=== PATIENT | female | born 1950 | race American Indian/Alaskan Native ===

== ENCOUNTER 2018-05-01 07:36 | Day surgery (SDC) | payer MEDICARE, OTHER ==
[2018-04-28 15:47] VITALS: BMI 29.0
--- NOTE | 2018-05-01 09:54 | CP.SDSHP ---
Same Day Surgery H & P - History Proposed Procedure: Colonoscopy Pre-Op Diagnosis: Personal history of rectal cancer - Previous Medical/Surgical History Pulmonary: Asthma Previous Surgical History: APR - Allergies Allergies: Allergies No Known Allergies Allergy (Verified 04/28/18 15:49) - Current Medications Current Medications: See reconciliation sheet - Physical Exam General Appearance: WD WN female in NAD Vital Signs: Vital Signs 05/01/18 08:32 Temperature 968 F H Pulse Rate 65 Respiratory 20 Rate Blood Pressure 138/74 O2 Sat by Pulse 96 Oximetry Mental Status: Alert & Oriented x3 Neuro: WNL Heart: WNL Lungs: WNL GI: WNL - {Optional Preform as Required} Abdomen: Other Other Pertinent Findings: LLQ colostomy - Impression Impression: Personal history of rectal cancer Pt. Evaluated Today:Candidate for Anesthesia & Procedure: Yes - Date & Time Date: 05/01/18 Time: 09:54 Short Stay Discharge - Short Stay Discharge Admitting Diagnosis/Reason for Visit: ENCOUNTER FOR SCREENING FOR MALIGNANT NEOPLASM OF Disposition: HOME/ ROUTINE
[2018-05-01] MEDS ORDERED: Propofol 10 mg/ml Inj (20 ML) ONE (10:07)
[2018-05-01 10:47] VITALS: TEMP 97
[2018-05-01 11:05] VITALS: PULSE 62; RESP 18; O2SAT 99
[2018-05-01 11:31] VITALS: BP 148/71
== END 2018-05-01 11:30 | disposition home or self-care (01) ==
LOC: C.ENDO 07:36
PROVIDERS: ATTEND Internal Medicine Gastroenterology
DX: Z12.11 Encounter for screening for malignant neoplasm of colon (principal); D12.0 Benign neoplasm of cecum; J45.909 Unspecified asthma, uncomplicated
CPT/HCPCS: 45380; 88305; J2704